=== PATIENT | female | born 1990 | race Caucasian/White ===

== ENCOUNTER 2016-07-23 08:42 | Emergency (ER) | payer OTHER ==
[~2016-07-23] VITALS: Ht 160 cm; Wt 105.8 kg
[2016-07-23 08:44] VITALS: BP 146/84; TEMP 36.4; Ht 160 cm; Wt 105.8 kg
[2016-07-23 09:13] VITALS: PULSE 78; O2SAT 99
--- NOTE | 2016-07-23 16:32 | EMERGENCY ROOM VISIT NOTE ---
ED Visit Note First contact with patient: 08:48 CHIEF COMPLAINT: Right Shoulder injury HISTORY OF PRESENT ILLNESS: This 25-year-old white female patient had sudden onset of right shoulder pain earlier today while at work. 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 She states approximate 5:30 AM she and the nurse were helping a resident into a wheelchair. The resident started to fall, and she helped the patient and redirect him back onto the bed. She states she had pain in the right shoulder with a tingling-type sensation that went down the arm. There is limitation of motion of the arm because of the pain. The patient did not hear a cracking the sound at the time of the injury. The pain is moderate, constant and increases with motion of the arm. No previous significant shoulder disease or injury. [id number]. The tingling is less now than it was earlier. She denies any neck pain. No chest pain. No treatment yet. REVIEW OF SYSTEMS: Head: No headache or injury. Neck: No pain, stiffness, or swelling. Neurological: No headache, new changes in mental status, vertigo , focal weakness, numbness. Respiratory: No cough, shortness of breath, or chest pain. PMH: The patient is healthy; there is no significant medical or surgical history. Previous surgeries: None. Family history: Noncontributory. Current medications: None Allergies: NKDA SOCIAL HISTORY: Patient lives at home. Non-smoker, no excessive alcohol use. Employed. PHYSICAL EXAM: Vital Signs: Reviewed nurse's notes. Afebrile. General: Well- developed, well-nourished, young white female, in no acute distress. Sitting on the bed. Alert and oriented. Skin: Warm and dry with good turgor. No rashes or lesions. No ecchymosis or erythema. The patient is not diaphoretic. No abrasions. Tattoo present on the right posterior shoulder. Musculoskeletal: The right shoulder is not swollen or deformed on inspection. She has full internal and external rotation, including behind the back reach, though this does increase her pain. She lacks the last few degrees of overhead reach for both forward flexion and abduction. No significant increase in discomfort with supraspinatus testing, Crisostomo testing, or near impingement testing. No wheeze drop arm. No weakness. Focal pain with palpation over the rhomboid and trapezius. No pain with palpation over the rotator cuff musculature is at this time. Strength is 5/5 for resisted internal and external rotation with her arm at her side. Elbow exam is benign. No pain with palpation over the cervical spine. There is no tenderness of the distal clavicle. Intact motor function to the wrist and digits. Strength is 5/5 for resisted motion. Neurologic: Gross sensation is intact across the right arm by soft touch. Peripheral pulses are 2+. Radial, median, and ulnar nerve functions are clearly intact motor and sensory. DIAGNOSIS: Right shoulder strain DISCHARGE INSTRUCTIONS & TREATMENT: Patient was educated regarding today's findings. Conservative care measures were discussed. She did not have any direct trauma. There was no crack or snap at the time of injury. I do not think radiographic imaging is necessary at this point. Rest the arm in a sling until the pain subsides. Apply ice to the shoulder intermittently and frequently over the next 72 hours. Tylenol and Motrin every 6 hours if needed for pain. See your own doctor or an orthopedic surgeon if you don't seem to be improving in 4 - 5 days. She may return to work on modified basis with a maximum lift of around 2 pounds in the right arm. This will be changed once shoulder has calmed down and she is able to see an orthopedist. Current/Historical Medications No Active Prescriptions or Reported Meds Allergies Coded Allergies: No Known Allergies (Unverified , 07/23/16) Vital Signs Date Time Temp Pulse Resp B/P Pulse Ox O2 Delivery O2 Flow Rate FiO2 07/23/16 09:13 78 18 99 07/23/16 08:44 36.4 62 18 146/84 100 Room Air Departure Information Impression Primary Impression: Right shoulder strain Dispostion Home / Self-Care Condition GOOD Prescriptions No Active Prescriptions or Reported Meds Referrals No Doctor, Assigned Gail Metz PA-C (PCP) Forms HOME CARE DOCUMENTATION FORM, MOTRIN USE, TYLENOL USE, IMPORTANT VISIT INFORMATION Patient Instructions Strains - [facility] Additional Instructions Use your sling as needed for discomfort Gentle motion daily Ice intermittently 3 days, then use moist heat Follow-up with your worker's comp doc for reevaluation soft tissue massage may improve your discomfort Tylenol 650 mg and Motrin 600 mg every 6 hours as needed for discomfort Modified duty at work 3 days-Max lift with the right arm is 2 pounds
== END 2016-07-23 09:15 | disposition home or self-care (01) ==
LOC: C.EDB 08:45 → C.EDA 09:15
DX: S46.811A Strain of other muscles, fascia and tendons at shoulder and upper arm level, right arm, initial encounter (principal); Y92.128 Other place in nursing home as the place of occurrence of the external cause; Y93.F9 Activity, other caregiving

== ENCOUNTER → 2016-07-26 | Outpatient (CLI) | payer OTHER ==
--- NOTE | 2016-07-26 13:41 | DIAGNOSTIC IMAGING REPORT ---
RIGHT SHOULDER MIN 2 VIEWS ROUTINE CLINICAL HISTORY: Right shoulder pain. Work related injury. COMPARISON: None FINDINGS: Alignment of the right shoulder is anatomic. No fracture is identified. Joint spaces are preserved. IMPRESSION: No acute fracture or dislocation of the right shoulder. Electronically signed by: Matt Saldana M.D. 07/26/2016 1:40 PM Dictated Date/Time: 07/26/2016 1:39 PM
== END | disposition home or self-care (01) ==
LOC: C.RAD1850 13:23
PROVIDERS: ATTEND Nurse Practitioner Family
DX: M25.511 Pain in right shoulder (principal)

== ENCOUNTER → 2016-08-04 | Outpatient (CLI) | payer OTHER ==
--- NOTE | 2016-08-04 17:03 | DIAGNOSTIC IMAGING REPORT ---
RIGHT SHOULDER MRI HISTORY: RIGHT SHOULDER PAIN AFTER WORK RELATED INJURY TECHNIQUE: Multiplanar multisequence MRI of the right shoulder was performed without contrast. COMPARISON STUDY: Right shoulder 07/26/2016. FINDINGS: AC joint: Intact Rotator cuff: Mild motion artifact resulting in suboptimal evaluation. No evidence for rotator cuff tear. No fluid within the subacromial/subdeltoid bursa. Labrum: Suboptimal evaluation due to motion artifact. However, the labrum appears grossly intact. Biceps tendon: Intact Bones: No fracture or dislocation. Cartilage: Intact Miscellaneous: No joint effusion. IMPRESSION: Suboptimal evaluation due to the motion artifact. However, no evidence for internal derangement within the right shoulder. Electronically signed by: Tristan Patel M.D. 08/04/2016 5:02 PM Dictated Date/Time: 08/04/2016 4:59 PM
== END | disposition home or self-care (01) ==
LOC: C.MRI 16:00
PROVIDERS: ATTEND Nurse Practitioner Family
DX: S49.91XA Unspecified injury of right shoulder and upper arm, initial encounter (principal); M25.511 Pain in right shoulder; X58.XXXA Exposure to other specified factors, initial encounter; Y99.0 Civilian activity done for income or pay